=== PATIENT | male | born 1985 | race Caucasian/White ===

== ENCOUNTER 2018-01-17 16:12 | Emergency (ER) | payer MEDICAID ==
[~2018-01-17] VITALS: Ht 160 cm; Wt 70.5 kg
[2018-01-17] MEDS ORDERED: ketorolac trometh. 30mg/ml inj. IV ONE (16:35)
[2018-01-17 16:36] LABS: BASOPHILS % (AUTO) 0.3 % (0-1); EOSINOPHILS % (AUTO) 0.3 % (0-6); HEMATOCRIT 47.8 % (42.0-52.0); HEMOGLOBIN 16.1 g/dl (14.0-17.9); LYMPHOCYTES # (AUTO) 1.8 X10'3 (1.1-4.8); LYMPHOCYTES % (AUTO) 18.1 % (21-51); MEAN CORPUSCULAR HEMOGLOBIN 29.3 PG (27.0-31.0); MEAN CORPUSCULAR HGB CONC 33.6 % (33.0-36.5); MEAN CORPUSCULAR VOLUME 87.2 FL (78-98); MEAN PLATELET VOLUME 8.6 FL (7.4-10.4); MONOCYTES # (AUTO) 0.9 X10'3 (0-0.9); MONOCYTES % (AUTO) 9.2 % (2-12); NEUTROPHILS # (AUTO) 7.1 X10'3 (1.8-7.7); NEUTROPHILS % (AUTO) 72.1 % (42-75); PLATELET COUNT 242 X10'3 (140-440); RED BLOOD COUNT 5.48 X10'6 (4.70-6.10); RED CELL DISTRIBUTION WIDTH 13.1 % (11.5-14.5); WHITE BLOOD COUNT 9.8 X10'3 (4.5-11.0)
[2018-01-17 16:52] LABS: ALANINE AMINOTRANSFERASE 31 U/L (12-78); ALBUMIN 4.1 G/DL (3.4-5.0); ALBUMIN/GLOBULIN RATIO 1.1 (1.1-1.5); ALKALINE PHOSPHATASE 67 IU/L (46-116); ANION GAP 10 (8-16); ASPARTATE AMINO TRANSFERASE 21 U/L (10-37); BILIRUBIN,TOTAL 0.3 MG/DL (0.1-1.0); BLOOD UREA NITROGEN 8 MG/DL (7-18); BUN/CREATININE RATIO 6.8 (5.4-32.0); CHLORIDE 103 MMOL/L (99-107); CREATININE 1.17 MG/DL (0.60-1.10); GLUCOSE 99 MG/DL (70-104); POTASSIUM 3.9 MMOL/L (3.5-5.1); SODIUM 139 MMOL/L (135-145); TOTAL CARBON DIOXIDE 26.5 MMOL/L (24-32); TOTAL PROTEIN 7.8 G/DL (6.4-8.2); eGFR 72 ML/MIN
[2018-01-17 16:57] LABS: PARTIAL THROMBOPLASTIN TIME 25 SECONDS (22-32); PROTHROMBIN TIME 10.7 SECONDS (9.0-12.0)
[2018-01-17] MEDS ORDERED: IBUP-1986 PO (17:04)
[2018-01-17] MEDS ORDERED: ALBU8HFA PO (17:11)
[2018-01-17 17:13] VITALS: BP 127/69
== END 2018-01-17 17:15 | disposition home or self-care (01) ==
LOC: ER 16:13
DX: R07.89 Other chest pain (principal); R06.2 Wheezing; F12.90 Cannabis use, unspecified, uncomplicated
CPT/HCPCS: 36415; 71045; 80053; 84484; 85025; 85610; 85730; 93005; 96374; 99285; J1885

== ENCOUNTER 2018-01-19 15:19 | Emergency (ER) | payer MEDICAID ==
[~2018-01-19] VITALS: Ht 160 cm; Wt 70.0 kg
[~2018-01-19 15:19] MED LIST: ALBU8HFA PO; IBUP-1986 PO
[2018-01-19] MEDS ORDERED: ketorolac tromethamine 15mg/ml inj. IM ONE (17:25)
[2018-01-19] MEDS ORDERED: ONDA4TAB9 SL (17:57)
[2018-01-19 18:04] VITALS: BP 147/78
[2018-01-19] MEDS ORDERED: ondansetron 4mg rapidly disintigrating tab PO ONE (18:05)
== END 2018-01-19 18:05 | disposition home or self-care (01) ==
LOC: ER 15:19
DX: R07.89 Other chest pain (principal); F12.90 Cannabis use, unspecified, uncomplicated; Z79.899 Other long term (current) drug therapy
CPT/HCPCS: 93005; 96372; 99283; J1885

== ENCOUNTER 2018-03-20 16:24 | Emergency (ER) | payer MEDICAID ==
[~2018-03-20] VITALS: Ht 160 cm; Wt 62.7 kg
[~2018-03-20 16:24] MED LIST changes: -ALBU8HFA PO
[2018-03-20 18:03] VITALS: BP 117/61
== END 2018-03-20 18:05 | disposition home or self-care (01) ==
LOC: ER 16:25
DX: R07.89 Other chest pain (principal); R63.4 Abnormal weight loss; F12.90 Cannabis use, unspecified, uncomplicated
CPT/HCPCS: 36415; 71045; 84443; 93005; 99285